=== PATIENT | male | born 1995 | race Caucasian/White ===

== ENCOUNTER → 2016-08-30 | Outpatient (CLI) | payer MEDICAID ==
[2016-08-30 19:03] LABS: THYROID STIMULATING HORMONE 0.15 uIU/mL (0.47-4.68)
== END ==
LOC: OD 15:50
PROVIDERS: ATTEND Nurse Practitioner Pediatrics
DX: E66.9 Obesity, unspecified (principal)
CPT/HCPCS: 36415; 82306; 83036; 84439; 84443

== ENCOUNTER → 2016-09-03 | Outpatient (CLI) | payer MEDICAID ==
[2016-09-03 18:07] LABS: THYROID STIMULATING HORMONE 0.16 uIU/mL (0.47-4.68)
== END ==
LOC: OD 15:32
PROVIDERS: ATTEND Pediatrics
DX: R94.6 Abnormal results of thyroid function studies (principal)
CPT/HCPCS: 36415; 84439; 84443